=== PATIENT | female | born 1935 | race Caucasian/White ===

== ENCOUNTER → 2018-06-14 | Outpatient (CLI) | payer OTHER ==
[~2018-06-14] MED LIST: ALDACTONE25 MG PO; CELEXA10 MG PO; CLONAZEPAM PO; COLACE100 MG PO; HYDROCODON-ACE1 EAC5 PO; HYDROCODON-ACE1 EAC7 PO; IBUPROFEN 200200 M1 PO; LEVOTHROID; LEVOTHYROXIN0.112 M1 PO; LOVASTATIN; MEVACOR40 MG PO; NABUMETONE 500500 M1 PO; NORCO 10-325 T1 EACH PO; PAIN PILL; SPIRONOLACTONE; XANAX 0.25 MG0.25 MG PO; ZOFRAN ODT4 MG PO; [UNRECOGNIZED DRUG - REMARK]
--- NOTE | ~2018-06-14 | HPC ---
[facility] [place] [address] [address] PAIN MANAGEMENT CONSULTATION Name: CRYSTAL TODD Room #: REG [facility] Roby#: [id number] Admission: 06/14/18 Attend Phys: Danilo Claire DO Discharge: Date of : 31 Report #: [id number] THIS REPORT FOR: //name// CC: Dr. Griselda Claire Physician staff JESENIA CHRIS DATE OF SERVICE: 06/14/2018 REFERRING PHYSICIAN: Dr. Villalobos. CHIEF COMPLAINT: Right shoulder pain. HISTORY OF PRESENT ILLNESS: As you know, the patient is a very pleasant 82-year-old female who suffers from severe arthritic changes of multiple weightbearing joints and upper extremity joints. She returns today in followup visit having undergone a right intra-articular shoulder injection on 04/27/2018 with excellent improvement in symptoms. She is placing pain score now at 2/10. She is denying any continued right shoulder pain and is very pleased with the response to the injection. She returns only in followup visit to discuss treatment options if her pain does return. She also has questions about blood pressure today. Apparently, her blood pressure has been quite low and she has been somewhat dizzy and disoriented. Blood pressure today is 104/57 for which the patient indicates her typical blood pressure is 114/80. She continues to take spironolactone twice a day. She returns to discuss her concerns in regards to blood pressure issues, but also to discuss repeating injections in the right shoulder if her pain does return. ALLERGIES: No reported drug allergies. CURRENT MEDICATIONS: Spironolactone 25 mg b.i.d., levothyroxine 112 mcg per day, lovastatin 40 mg per day, alprazolam 0.25 mg q. 6 hours p.r.n. anxiety. SOCIAL HISTORY: The patient denies tobacco, IV or illicit drug use. Admits to 1-2 alcohol beverages per day. 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 She is unaccompanied today. IMAGING: No new imaging available. PQRS: The patient has osteoarthritis of bilateral shoulders, low back, bilateral hips, bilateral wrists, bilateral hands and ankles. She is not diagnosed with rheumatoid arthritis. She is placing current pain score 2/10. She is a fall risk, but has not had a fall in the last 3 months. She is not on blood thinners. She is treated for hypertension. She has not been on opioids for any length of time. She has a low assessment for opioid [place] [address] PAIN MANAGEMENT CONSULTATION Name: CRYSTAL TODD Room #: REG [facility]#: [id number] Admission: 06/14/18 Attend Phys: Danilo Claire DO Discharge: Date of : 33 Report #: [id number] placing pain impact score 32/70, moderate. PHYSICAL EXAMINATION: VITAL SIGNS: Blood pressure 104/57, pulse is 80, respiratory rate 14 and unlabored. The patient is 98% on room air. Height 5 feet 2 inches tall. GENERAL: Well-developed, well-nourished, well-hydrated 82-year-old female appearing stated age, placing current pain score 2/10. HEENT: Normocephalic, atraumatic. Pupils equal, round, reactive to light. Extraocular muscles are intact. Sclerae nonicteric without injection. Speech is fluent. EXTREMITIES: Show no clubbing, no cyanosis, but multiple gross abnormality and changes in the bilateral hands, bilateral wrists, elbows and bilateral knees. MUSCULOSKELETAL: Severe range of motion loss in the right shoulder, both passive and active range. Pain is elicited with almost all maneuvers. Apprehension test positive right. Benny's test positive on the right. ASSESSMENT: 1. Right shoulder pain. 2. Severe right shoulder osteoarthritis. 3. Rotator cuff injury of the right shoulder. 4. Generalized osteoarthritis (severe). 5. Chronic intractable pain. PLAN: 1. The patient has returned today in followup visit indicating excellent benefit with the right intra-articular shoulder injection. The patient is placing pain only about 2/10. She is extremely pleased with response to this injection, returning only today to discuss repeating the injections if her pain does return. At present, I would recommend delaying the next in the series of injections as she is doing well and pain has not returned to a level of intolerability. The patient is amenable. 2. The patient and I had a very long discussion about her blood pressure. Her diastolic pressure is extremely low, is sitting at 57 currently. Pulse is up to 80. There is a possibility the patient is somewhat dehydrated. There is also a possibility that the spironolactone is providing a decreased fluid volume and this may be leading to her diastolic decrease in pressure. The patient states that over the past couple of weeks she has become somewhat dizzy and disoriented. She believes this is due to her blood pressure issue as she has always been at diastolic pressures of 70 and 80. I have discussed with the patient that there is a possibility that the dehydration may be due to just lack of free water input, but may also be due to more rapid loss of fluids secondary to spironolactone. The patient needs to contact her prescribing physician to discuss options for treatment, though I would recommend at this point reducing her spironolactone by 50%. If her symptoms improve, then discuss with PCP about reduction in spironolactone. I have advised the patient to contact her prescribing physician initially before making the potential change in her [facility] [address] [place] [address] PAIN MANAGEMENT CONSULTATION Name: CRYSTAL TODD Room #: REG [facility]..#: [id number] Admission: 06/14/18 Attend Phys: Danilo Claire DO Discharge: Date of : 31 Report #: [id number] spironolactone. I have also advised the patient to begin calculating the amount of water that she puts in on a daily basis as I do not feel she is getting her typical water amounts and due to decrease in humidity over the last couple of weeks, this may lead to a slow progression of dehydration. 3. We will see the patient back in followup visit on an as needed basis for intra-articular shoulder injection. The patient will contact her PCP about the blood pressure issues. By: 0814 19 Danilo Claire DO /nt
[2018-06-14 13:16] VITALS: BP 104/57
== END ==
LOC: PAIN 07:05
DX: S46.001A Unspecified injury of muscle(s) and tendon(s) of the rotator cuff of right shoulder, initial encounter (principal); M19.011 Primary osteoarthritis, right shoulder; G89.4 Chronic pain syndrome; X58.XXXA Exposure to other specified factors, initial encounter; Y93.89 Activity, other specified; Y92.89 Other specified places as the place of occurrence of the external cause; Y99.8 Other external cause status

== ENCOUNTER → 2018-09-20 | Outpatient (CLI) | payer OTHER ==
[2018-09-20 15:10] VITALS: BP 112/67
--- NOTE | 2018-09-20 15:33 | NUR ---
Pain Clinic Assessment: 1. History of Osteoarthritis: Left Upper Extremity * LUMBAR History of Rheumatoid Arthritis: 2. Height: 5 ft. 2 in. 157.5 cm. Weight: lb. oz. kg. Patient's BMI: 3. Vital Signs: BP: 112/67 Pulse: 80 Resp: 14 Temp: 02 Sat: 98 ECG Mon: 4. Pain Intensity: 6 5. Fall Risk: Dizziness: N Needs help standing or walking: Y Fallen in the last 3 months: N Fall risk comments: 6. Patient on Blood Thinner: None 7. History of Hypertension: N 8. Opioid Therapy greater than 6 weeks: N Opiate Contract Signed: 9. Risk Assessment Tool Provided: Opioid Risk Tool 10. Functional Assessment Tool: 11. Recreational Drug Use: Never Drug Type: Tobacco Use: Never Smoker Tobacco Type: Amount or Packs/day: How Many Years: Alcohol Use: Yes Frequency: Daily Quant: 2 DRINKS A DAY
--- NOTE | 2018-10-04 07:32 | HPC ---
[facility] [place] [address] PAIN MANAGEMENT CONSULTATION Name: CRYSTAL TODD Room #: REG [facility].#: [id number] Admission: 09/20/18 ������������������ Attend Phys: Danilo Claire DO Discharge: ������������������ Date of : 33 Report #: [id number] THIS REPORT FOR: //name// CC: Danilo Villalobos MD Physician staff JESENIA CHRIS DATE OF SERVICE: 09/20/2018 CHIEF COMPLAINT: Right shoulder pain. HISTORY OF PRESENT ILLNESS: As you know, the patient is a very pleasant 82-year-old female who suffers from severe arthritic changes of multiple weightbearing joints and upper extremity joints. She returns today in followup visit with increasing right shoulder pain. She is placing pain score 6/10. She reports with the previous intra-articular shoulder injection, near 90% improvement in overall pain lasting for almost 4 months. She returns today in followup visit stating no new injury, no new trauma, but recurrence of her right shoulder pain. She returns today requesting to undergo right intra-articular shoulder injection under fluoroscopic guidance to address residual pain. ALLERGIES: No known drug allergies. CURRENT MEDICATIONS: Spironolactone 25 mg twice a day, levothyroxine 112 mcg per day, lovastatin 40 mg twice a day, alprazolam 0.25 mg p.r.n., citalopram 10 mg per day, docusate sodium 100 mg twice a day. SOCIAL HISTORY: The patient denies tobacco, IV or illicit drug use. Admits to 1-2 alcohol beverages per day. 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 IMAGING: No new imaging available. PQRS: The patient has osteoarthritic changes of the bilateral shoulders, lumbar spine, bilateral hips, bilateral wrist, bilateral hands, and bilateral ankles. She is not diagnosed with rheumatoid arthritis. She is placing current pain score at 6/10. She is a fall risk, but has not had a fall in the last 3 months. She uses canes, walkers and intermittent wheelchair for mobility. She is not on blood thinners. She is not treated for hypertension. She has not been on opioids. She is a low risk for opioid addiction. She is placing pain impact score 32/70, moderate interference of daily activities secondary her pain. PHYSICAL EXAMINATION: VITAL SIGNS: Blood pressure 112/67, pulse is 80, respiratory rate 14 and unlabored. The patient is 98% on room air. Height 5 feet [address] [address] PAIN MANAGEMENT CONSULTATION Name: CRYSTAL TODD Room #: REG [facility]#: [id number] Admission: 09/20/18 ������������������ Attend Phys: Danlio Claire DO Discharge: ������������������ Date of : 33 Report #: [id number] GENERAL: Well-developed, well-nourished, well-hydrated 82-year-old, kyphotic, scoliotic and arthritic female, appearing stated age, placing current pain score 6/10. HEENT: Normocephalic, atraumatic. Pupils equal, round, reactive to light. Speech remains fluent. EXTREMITIES: Show no clubbing, no cyanosis. Multiple gross abnormalities with changes in the bilateral hands, bilateral wrists, bilateral elbows, bilateral knees. MUSCULOSKELETAL: Severe loss of range of motion of the right shoulder is noted. This is both with passive and active range of motion. There is significant amount of crepitus with movement. Benny's test is positive on the right. Pain is elicited with palpation in both the anterior and posterior of right shoulder. Apprehension test positive. ASSESSMENT: 1. Right shoulder pain. 2. Severe right shoulder osteoarthritis. 3. Rotator cuff injury of the right shoulder. 4. Generalized osteoarthritis. 5. Chronic intractable pain. PLAN: 1. The patient has returned today in followup visit requesting to undergo a right intra-articular shoulder injection under fluoroscopic guidance. She has received excellent benefit with previous intra-articular shoulder injection reporting 90% improvement in overall pain lasting for nearly 4 months. She returns today in followup visit, denying new injury or new trauma that may have led to symptom recurrence, requesting to undergo right intra-articular shoulder injection in hopes of building on success of previous intervention. The patient was advised risks and benefits, states understood and wished to proceed. 2. No medication changes made at today's visit. The patient will continue current medical therapy as previously prescribed. 3. We will see the patient back in followup visit for possible next in the series of right intra-articular shoulder injections. PROCEDURE NOTE DESCRIPTION OF PROCEDURE: Right intra-articular shoulder injection under fluoroscopic guidance. After obtaining written consent, the patient was taken back to fluoroscopy suite, placed in a supine position. Image intensifier was then brought into position over the right shoulder and AP imaging was obtained. The area overlying the injection site was then prepped and draped in aseptic fashion using chlorhexidine. A sterile marker was then placed over the injection site to confirm position of the injection to be performed today. The area overlying [address] [address] PAIN MANAGEMENT CONSULTATION Name: CRYSTAL TODD Room #: REG [facility]#: [id number] Admission: 09/20/18 ������������������ Attend Phys: Danilo Claire DO Discharge: ������������������ Date of : 33 Report #: [id number] this injection site was then anesthetized with 2 mL of 1% lidocaine. A 27-gauge 1-1/4 inch needle was then used to advance into the right shoulder under direct AP fluoroscopic imaging. Needle was advanced until reaching the proximal head of the humerus. Needle was then retracted approximately 1 mm and aspiration noted to be negative for heme. After negative aspiration for heme, 0.5 mL of Omnipaque injected demonstrating an excellent right shoulder arthrogram. After negative aspiration for heme, 3 mL of a solution containing 1 mL 40 mg per mL, 40 mg total of triamcinolone, 2 mL bupivacaine 0.5% injected slowly. Needle was retracted residential, flushed with 1 mL of 1% lidocaine and then removed. Sterile bandage placed over injection site. There were no new motor deficits present in the upper extremity following procedure. The patient tolerated procedure well, carefully escorted to recovery room in stable condition. No apparent complications. After meeting discharge criteria, the patient discharged home. ��������������������������������������������� <ELECTRONICALLY SIGNED> ���������������������������������������� By: Danilo Claire DO ��������������������������������������������� 10/04/18 0732 1124 [id number] Danilo Claire DO /nt
== END | disposition home or self-care (01) ==
LOC: PAIN 07:02
DX: M19.011 Primary osteoarthritis, right shoulder (principal); S46.001A Unspecified injury of muscle(s) and tendon(s) of the rotator cuff of right shoulder, initial encounter; G89.29 Other chronic pain; M19.90 Unspecified osteoarthritis, unspecified site; X58.XXXA Exposure to other specified factors, initial encounter; Y93.89 Activity, other specified; Y92.89 Other specified places as the place of occurrence of the external cause; Y99.8 Other external cause status

== ENCOUNTER 2021-01-27 12:32 | Emergency (ER) | payer OTHER ==
[~2021-01-27] VITALS: Ht 157.5 cm; Wt 61.7 kg
[2021-01-27 13:56] LABS: ABSOLUTE NEUTROPHILS 3.9 thou/uL (1.4-8.2); BASOPHILS 1.2 % (0.0-2.0); EOSINOPHILS 5.5 % (0.0-3.0); HEMATOCRIT 40.5 % (37.0-47.0); HEMOGLOBIN 13.4 gm/dL (12.0-15.0); LYMPHOCYTES 14.1 % (24.0-44.0); MCH 32.9 pg (26.0-34.0); MCV 99.8 fL (80.0-100.0); MONOCYTES 6.2 % (1.0-8.0); PLATELET COUNT 161 thou/uL (150-400); RBC 4.06 mil/uL (4.20-5.00); RDW 14.1 % (10.5-14.5); WBC 5.4 thou/uL (4.0-11.0)
[2021-01-27 14:14] LABS: ANION GAP 10 mmol/L (7-16); BUN 21 mg/dL (7-18); CALCIUM 8.9 mg/dL (8.5-10.1); CHLORIDE 107 mmol/L (98-107); CO2 25 mmol/L (21-32); GLUCOSE 101 mg/dL (74-106); POTASSIUM 4.1 mmol/L (3.5-5.1); SODIUM 142 mmol/L (136-145)
[2021-01-27 14:26] LABS: TROPONIN-I <0.06 ng/mL (<0.06)
--- NOTE | 2021-01-27 14:37 | EKG ---
[address] [address] ELECTROCARDIOGRAM REPORT Name: CRYSTAL TODD Room #: PRE [facility]#: [id number] Admission: Attend Phys: Discharge: Date of : 33 Report #: [id number] [facility] ED Test Date: 2021-01-27 Test Time: 12:52:12 Pat Name: CRYSTAL TODD Department: Room: Gender: F [employer]: : 1935 Requested By: Jay Mason Order Number: [id number] MD: Thong Izquierdo Measurements Intervals [place] Rate: 73 P: SC: QRS: -21 QRSD: 109 T: 18 QT: 378 QTc: 417 Interpretive Statements Atrial fibrillation Borderline left axis deviation Low voltage, precordial leads Abnormal R-wave progression, late transition Baseline wander in lead(s) I,II,aVR Compared to ECG 11/16/2009 09:31:50 Low QRS voltage now present Sinus rhythm no longer present Sinus arrhythmia no longer present ST (T wave) deviation no longer present Electronically Signed On 01-27-2021 14:36:54 CDT by Thong Izquierdo [email or web address] <ELECTRONICALLY SIGNED> By: Thong Izquierdo MD, FAC 01/27/21 1436 1252 1252 Thong Izquierdo MD, [facility] /EPI
[2021-01-27 15:19] LABS: URINE BILIRUBIN NEGATIVE (Negative); URINE BLOOD NEGATIVE (Negative); URINE CLARITY SL CLOUDY; URINE COLOR YELLOW; URINE GLUCOSE-RANDOM* NEGATIVE (Negative); URINE KETONES NEGATIVE (Negative); URINE LEUKOCYTES-REFLEX 1+ (Negative); URINE NITRITE-REFLEX NEGATIVE (Negative); URINE PROTEIN (DIPSTICK) NEGATIVE (Negative); URINE SPECIFIC GRAVITY <= 1.005 (1.005-1.035); URINE UROBILINOGEN 0.2 E.U./dl (0.2-1.0)
[2021-01-27 15:27] LABS: CASTS None Seen /LPF (None Seen); CRYSTALS None Seen /LPF (None Seen); SQUAMOUS >10 Many /LPF (0-3); URINE RBC 1-2 Rare /HPF (NONE SEEN); URINE WBC-REFLEX 0-5 Rare /HPF (0-5)
[2021-01-27 16:19] VITALS: BP 119/65
== END 2021-01-27 16:19 | disposition home or self-care (01) ==
LOC: ER 12:32
PROVIDERS: Nurse Practitioner
DX: R53.1 Weakness (principal); R42 Dizziness and giddiness; Z90.49 Acquired absence of other specified parts of digestive tract; Z79.899 Other long term (current) drug therapy